=== PATIENT | female | born 1965 | race Caucasian/White ===

== ENCOUNTER 2017-08-25 11:27 | Emergency (ER) | payer MEDICAID ==
[~2017-08-25] VITALS: Ht 160 cm; Wt 90.7 kg
[2017-08-25 11:27] VITALS: BP 133/93
[2017-08-25 12:45] LABS: ANION GAP 11 mmol/L (5-15); CARBON DIOXIDE 29 MMOL/L (21-32); CHLORIDE 102 MMOL/L (98-107); CREATININE 1.1 MG/DL (0.55-1.30); GLOMERULAR FILTRATION RATE 51.9 mL/min (>60); POTASSIUM 3.7 MMOL/L (3.5-5.1); SODIUM 142 MMOL/L (136-145)
--- NOTE | 2017-08-25 12:54 | Diagnostic Imaging Report ---
Indication: A trauma, status post fall Technique: Continuous helical CT scanning of the head was performed without intravenous contrast material. Axial and coronal 5 mm sections were generated. Radiation dose was minimized using automated exposure control Dose: Total Dose Length Product - DLP [address] Dose Index - CTDIvol(s) 70.38 mGy. Comparison: none Findings: The ventricular system is normal in size and configuration. There is no shift of midline structures. No abnormal extra-axial fluid collections are noted. There is no evidence of intracerebral bleeding. No other abnormal high or low density areas are noted within the brain. Intact calvarium. Visualized orbits are unremarkable. There is a right maxillary sinus polyp versus mucous retention cyst Impression: Normal CT scan of the head without contrast material. Incidental finding of sinus disease The CT scanner at [facility] is accredited by the [employer] and the scans are performed using protocols designed to limit radiation exposure to as low as reasonably achievable to attain images of sufficient resolution adequate for diagnostic evaluation.
[2017-08-25 12:58] LABS: BASOPHILS % (AUTO) 0.9 % (0.0-2.0); EOSINOPHILS % (AUTO) 1.4 % (0.0-3.0); LYMPHOCYTES % (AUTO) 23.2 % (20.0-45.0); MEAN CORPUSCULAR HEMOGLOBIN 30.7 PG (27.0-31.0); MEAN CORPUSCULAR HGB CONC 32.3 G/DL (32.0-36.0); MEAN CORPUSCULAR VOLUME 95 FL (80-99); MEAN PLATELET VOLUME 8.5 FL (6.5-10.1); MONOCYTES % (AUTO) 5.3 % (1.0-10.0); NEUTROPHILS % (AUTO) 69.2 % (45.0-75.0); PLATELET COUNT 214 K/UL (150-450); RED CELL DISTRIBUTION WIDTH 11.9 % (11.6-14.8); WHITE BLOOD COUNT 7.6 K/UL (4.8-10.8)
[2017-08-25 12:59] LABS: ALANINE AMINOTRANSFERASE 24 U/L (12-78); ALBUMIN/GLOBULIN RATIO 0.9 (1.0-2.7); ASPARTATE AMINO TRANSFERASE 16 U/L (15-37); THYROID STIMULATING HORMONE 1.128 uiU/mL (0.358-3.740); TOTAL PROTEIN 8.5 G/DL (6.4-8.2)
[2017-08-25 13:09] VITALS: BP 124/75
[2017-08-25 13:10] LABS: ACETAMINOPHEN < 2 MCG/ML (10-30); ALCOHOL < 3 mg/dL
--- NOTE | 2017-08-25 14:12 | Emergency Room Report ---
History of Present Illness General Chief Complaint: General Complaint Source: Patient, EMS Present Illness HPI This patient is brought in by EMS from a [facility]. She has a history of developmental mental delay. The patient states that she is suicidal. Apparently [id number] instructed that she is no longer able to stay there. She states she became distraught and is suicidal. She states that she is suicidal because of the of her mother. She states she is not safe for herself. She states a few days ago she fell and hit her head. She states at that time she has had lightheadedness. She denies recent illness. She denies chest pain or shortness of breath. Denies abdominal pain. She has no other complaints. Allergies: Coded Allergies: No Known Allergies (Unverified , 08/25/17) Patient History Past Medical History: DM, HTN, GERD, psych hx, other - developmental delay Social History: Denies: smoking, alcohol use, drug use Reviewed Nursing Documentation: PMH: Agreed, PSxH: Agreed Nursing Documentation-PMH Past Medical History: No History, Except For Hx Hypertension: Yes Hx Diabetes: Yes History Of Psychiatric Problem: Yes - MENTAL DISSABILITY Review of Systems All Other Systems: negative except mentioned in HPI Physical Exam Vital Signs Date Time Temp Pulse Resp B/P (MAP) Pulse Ox O2 Delivery O2 Flow Rate FiO2 08/25/17 11:19 97.9 66 16 158/92 99 Room Air Sp02 EP Interpretation: reviewed, normal General Appearance: no apparent distress, alert, GCS 15, non-toxic Head: normocephalic, atraumatic Eyes: bilateral eye normal inspection, bilateral eye PERRL ENT: hearing grossly normal, normal pharynx, no angioedema, normal voice Neck: full range of motion, supple/symm/no masses Respiratory: chest non-tender, lungs clear, normal breath sounds, speaking full sentences Cardiovascular #1: regular rate, rhythm, no edema Gastrointestinal: normal bowel sounds, non tender, soft, non-distended, no guarding, no rebound Rectal: deferred Musculoskeletal: back normal, gait/station normal, normal range of motion, non- tender Neurologic: alert, oriented x3, responsive, motor strength/tone normal, sensory intact, speech normal Psychiatric: judgement/insight normal, memory normal, mood/affect normal, no suicidal/homicidal ideation Skin: normal color, no rash, warm/dry, well hydrated Medical Decision Making Diagnostic Impression: Primary Impression: Suicidal ideation ER Course This patient has suicidal ideation. She has some stressors in her life and is developmentally delayed. She will not contract for safety. She's been on a 5150 by [employer]. Medical workup to include CBC, CMP, tox screen and CT of the head were unremarkable. She did have a slightly elevated blood sugar at 248. His history of diabetes. She is given IV fluids. She's medically cleared for inpatient psychiatric placement. Laboratory Tests Test 08/25/17 12:10 White Blood Count 7.6 K/UL (4.8-10.8) Red Blood Count 4.90 M/UL (4.20-5.40) Hemoglobin 15.1 G/DL (12.0-16.0) Hematocrit 46.6 % (37.0-47.0) Mean Corpuscular Volume 95 FL (80-99) Mean Corpuscular Hemoglobin 30.7 PG (27.0-31.0) Mean Corpuscular Hemoglobin Concent 32.3 G/DL (32.0-36.0) Red Cell Distribution Width 11.9 % (11.6-14.8) Platelet Count 214 K/UL (150-450) Mean Platelet Volume 8.5 FL (6.5-10.1) Neutrophils (%) (Auto) 69.2 % (45.0-75.0) Lymphocytes (%) (Auto) 23.2 % (20.0-45.0) Monocytes (%) (Auto) 5.3 % (1.0-10.0) Eosinophils (%) (Auto) 1.4 % (0.0-3.0) Basophils (%) (Auto) 0.9 % (0.0-2.0) Sodium Level 142 MMOL/L (136-145) Potassium Level 3.7 MMOL/L (3.5-5.1) Chloride Level 102 MMOL/L (98-107) Carbon Dioxide Level 29 MMOL/L (21-32) Anion Gap 11 mmol/L (5-15) Blood Urea Nitrogen 17 mg/dL (7-18) Creatinine 1.1 MG/DL (0.55-1.30) Estimate Glomerular Filtration Rate 51.9 mL/min (>60) Glucose Level 248 MG/DL (74-106) H Calcium Level 10.0 MG/DL (8.5-10.1) Total Bilirubin 0.4 MG/DL (0.2-1.0) Aspartate Amino Transferase (AST) 16 U/L (15-37) Alanine Aminotransferase (ALT) 24 U/L (12-78) Alkaline Phosphatase 67 U/L (46-116) Total Protein 8.5 G/DL (6.4-8.2) H Albumin 4.0 G/DL (3.4-5.0) Globulin 4.5 g/dL Albumin/Globulin Ratio 0.9 (1.0-2.7) L Thyroid Stimulating Hormone (TSH) 1.128 uiU/mL (0.358-3.740) Salicylates Level 1.1 ug/mL (2.8-20) L Acetaminophen Level < 2 MCG/ML (10-30) L Serum Alcohol < 3 mg/dL CT/MRI/US Diagnostic Results CT/MRI/US Diagnostic Results : Imaging Test Ordered: CT head Impression No acute findings. See official report. Last Vital Signs Date Time Temp Pulse Resp B/P (MAP) Pulse Ox O2 Delivery O2 Flow Rate FiO2 08/25/17 13:09 93 12 124/75 98 Room Air 08/25/17 11:27 97.9 Disposition: XFER SHT-TRM HOSP Condition: Serious Referrals: [facility],REFERRING (PCP) SG WONG D.O. Aug 25, 2017 14:12
[2017-08-25 15:49] LABS: APPEARANCE,URINE CLEAR; KETONES,URINE NEGATIVE (NEGATIVE); LEUKOCYTE ESTERASE ,URINE NEGATIVE (NEGATIVE); NITRITE,URINE NEGATIVE (NEGATIVE); PH,URINE 7 (4.5-8.0); PROTEIN,URINE NEGATIVE (NEGATIVE); UROBILINOGEN,URINE NORMAL MG/DL (0.0-1.0)
[2017-08-25] MEDS ORDERED: KLONOPIN1 MG ORAL (18:01)
[2017-08-25] MEDS ORDERED: LEXAPRO10 MG ORAL (18:01)
[2017-08-25] MEDS ORDERED: GLIMEPIRIDE4 MG ORAL (19:16)
[2017-08-25] MEDS ORDERED: SIMVASTATIN40 MG ORAL (19:16)
[2017-08-25] MEDS ORDERED: LOSARTAN POTASS25 MG ORAL (19:16)
[2017-08-25] MEDS ORDERED: OMEPRAZOLE40 M1 ORAL (19:16)
[2017-08-25] MEDS ORDERED: JANUVIA25 MG ORAL (19:16)
[2017-08-25] MEDS ORDERED: METFORMIN HCL1000 M1 ORAL (19:16)
[2017-08-25 19:17] VITALS: BP 134/79
[2017-08-25 21:17] VITALS: BP 138/71
[2017-08-25 23:17] VITALS: BP 131/88
[2017-08-26 01:17] VITALS: BP 115/71
[2017-08-26 03:17] VITALS: BP 117/79
[2017-08-26 05:17] VITALS: BP 109/69
[2017-08-26 08:50] VITALS: BP 127/82
[2017-08-26] MEDS: metFORMIN 500mg tab ORAL SCH ×2 (08:56→08:58)
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
== END 2017-08-26 09:00 | disposition short-term general hospital (02) ==
LOC: EDBD 11:27 → EMR 12:15
DX: R45.851 Suicidal ideations (principal); I10 Essential (primary) hypertension; E11.65 Type 2 diabetes mellitus with hyperglycemia; K21.9 Gastro-esophageal reflux disease without esophagitis; R62.50 Unspecified lack of expected normal physiological development in childhood; F32.9 Major depressive disorder, single episode, unspecified; F43.21 Adjustment disorder with depressed mood
CPT/HCPCS: 36415; 70450; 80053; 80307; 80329; 81003; 82962; 84443; 85025; 96360; 96361; 99285